=== PATIENT | female | born 2000 | race Caucasian/White ===

== ENCOUNTER 2024-05-08 00:57 | Day surgery (SDC) | payer OTHER, SELFPAY ==
--- NOTE | 2024-04-27 15:59 | SUR.PREOP ---
Report to the Outpatient Waiting Room, entrance under the green pavilion located off [facility], at time ___1130____ on date ____05/08/24___. Planned Procedure Time: ____1329____.? Time changes happen often and if your time is changed the preop area will call you the afternoon before. - You and your visitor will be asked to self-screen and do not enter if you have any COVID symptoms. Please call surgeon if you need to reschedule. - A mask is optional within the hospital at this time. Patients may have clear liquids (water, carbonated beverages, clear teas, apple juice) until 3 hours prior to surgery with a maximum of 20 ounces. - NO CLEAR LIQUIDS AFTER 1030 - No food from midnight until time of surgery and no smoking, or chewing tobacco (or any form of nicotine). No chewing gum, candy or mints. - Infants may have breast milk until 4 hours before surgery, infant formula 6 hours prior to surgery. - Children will be allowed to drink immediately following surgery.? If applicable, please bring a bottle or sippy cup to assist with drinking. Juice, water, soda, and popsicles are readily available.? For infants on formula, please bring formula the day of surgery.? Pacifiers are allowed. Take only the following medications with a SIP of water on the morning of surgery: N/A DO NOT STOP ANY OF YOUR OTHER PRESCRIPTION MEDICATIONS PRIOR TO SURGERY EXCEPT THE FOLLOWING Hold all vitamins and supplements for 3 days per anesthesiologist. Medications to discontinue per physician N/A Date to take last dose Please no make-up, nail ivorian, hairspray, perfume, deodorant, or body powder the day of surgery.? No jewelry (including any body piercings) or valuables the day of surgery, leave them at home.? Please take a shower or bath the night before, or the morning of, surgery with an antibacterial soap.? Wear comfortable, loose fitting clothing.? Children are encouraged to wear pajamas. - Jewelry must be removed prior to entering the operating room.? Rings and piercings that are not removed may be cut off. - The hospital will not accept responsibility for valuables.? - Please leave all valuables, including medications, at home the day of surgery. If you are going home after surgery, a licensed sheet pile driver operator must drive you home.? - NO public transportation without another adult if you receive anesthesia. - We recommend that an adult stay with you for 24 hours following discharge. - We also recommend that you do not drive, make important decision, drink alcoholic beverages, or take any drugs that were not prescribed by your health care provider for at least 24 hours after your discharge time. For Pediatric surgeries, we recommend two adults accompany the child home. Follow any additional instructions given to you from your surgeon. Telephone instructions given to ____SERENITY ELIAS and asked if any additional questions and then verbalized understanding. Patient advised to call surgeon office or pre surgery nurse liaison [phone] if any additional questions.
[2024-04-27 16:09] VITALS: BMI 18.3
[2024-05-08] VITALS (8 sets, daily range): BP systolic 104–119; BP diastolic 50–80; PULSE 56–93; RESP 14–20; TEMP 36.1–36.9; O2SAT 99–100; BMI 19.9
--- OUTSIDE RECORDS SUMMARY | 2024-05-08 01:01 | XMS_ITS | Clinical Summary ---
Author Organization [facility] Address [address] Rose: Epic Prelude ADT CEASAR SORENSEN [address] Care Team Providers Care Host Name Role Phone [facility], External Provider Primary Care Provider Un available Allergies No known active allergies Medications ibuprofen (MOTRIN) 600 mg tablet Take 1 Tablet (600 mg) by mouth every 6 hours as needed 60 Tablet 2 10/12/2022 11:03 AM CDT 10/12/2022 Active acetaminophen (TYLENOL) 325 mg tablet Take 2 Tablets (650 mg) by mouth every 6 hours as needed 60 Tablet 2 10/12/2022 Active sertraline (ZOLOFT) 50 mg tablet Take 50 mg by mouth daily. 11/21/2022 Active Active Problems Problem Noted Date Diagnosed Date Routine follow-up 10/21/2019 Anxiety state 10/21/2019 Normal labor and delivery 06/30/2019 Encounter for supervision of low-risk in third trimester 04/22/2019 Supervision of low-risk first , second trimester 01/14/2019 Encounters Date Type Department Care Team Description 04/21/2024 External Device Data [facility]STRACTION Provider, Abstract 03/25/2024 External Device Data [facility]STRA[facility] Provider, Abstract from Last 3 Months Family History Medical History Relation Name Comments Healthy Father Hypertension Mother Relation Name Status Comments Father Alive Mother Alive Social History Tobacco Use Types Packs/Day Years Used Date Smoking Tobacco: Never Smokeless Tobacco: Never Alcohol Use Standard Drinks/Week Comments Not Currently 0 (1 standard drink = 0.6 oz pur e alcohol) Feeling Safe Answer Date Recorded Are you in a relationship wi th someone who hurts you emotionally and/or physically? 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 Gender Identity Not on file Sexual Orientation Not on file Last Filed Vital Signs Vital Sign Reading Time Taken Comments Blood Pressure 110/54 06/21/2023 6:21 PM CDT Pulse 96 06/21/2023 6:21 PM CDT Temperature 36.9 C (98.4 F) 06/21/2023 6:21 PM CDT Respiratory Rate 18 06/21/2023 6:21 PM CDT Oxygen Saturation 98% 06/21/2023 6:21 PM CDT Inhaled Oxygen Concentration - - Weight 57.2 kg (126 lb) 06/21/2023 6:21 PM CDT Height 162.6 cm (5' 4 ) 06/21/2023 6:21 PM CDT Body Mass Index 21.63 06/21/2023 6:21 PM CDT Plan of Treatment Health Maintenance Due Date Last Done Comments HPV VACCINES (1 - 3-dose series) 2013 DTAP/TDAP/TD VACCINES (1 - Tdap) 2017 HEPATITIS B VACCINES (1 of 3 - 19+ 3-dose series) 2017 CERVICAL CANCER SCREENING 07/20/2019 INFLUENZA VACCINE (#1) 2023 CHLAMYDIA SCREENING (ANNUAL) 11-24 YEARS Discontinued 06/21/2023, 11/14/2018 PNEUMOCOCCAL VACCINE 0-49 YEARS Aged Out No longer eligible b ased on patient's age to complete this topic Procedures Procedure Name Priority Date/Time Associated Diagnosis Comments VAGINOSIS/VAGINITIS PANEL PLUS Routine 06/21/2023 6:42 PM CDT Genital lesion, female from Last 3 Months or Most Recently Relevant to Health Maintenance Results * (ABNORMAL) VAGINOSIS/VAGINITIS PANEL PLUS (06/21/2023 6:42 PM CDT) BACTERIAL VAGINOSIS POSITIVE(A) NEGATIVE [facility] TRINA SPECIES NOT DETECTED NOT DETECTED [facility] TRINA GLABRATA NOT DETECTED NOT DETECTED [facility] Comment: Trina species C. albicans, C. tropicalis, C. parapsilosis, and/or C. dubliniensis can be detected, but not differentiated, in the Trina spp. result. TRICHOMONAS VAGINALIS (TV), TMA NOT DETECTED NOT DETECTED [facility] C TRAC RNA NOT DETECTED NOT DETECTED [facility] N.GONORRHOEAE RNA, TMA NOT DETECTED NOT DETECTED [facility] Comment: For additional information, please refer to [email or web address]/faq/AYN480 (This link is being provided for information/ educational purposes only.) Test Performed at: [facility] [address] [place] [address] Kemar Martin MD Genital SPECIMEN FROM VAGINA / Unknown 06/21/2023 6:42 PM CDT 06/22/2023 9:16 AM CDT Nadiya Perrin PROFESSOR OF ARCHITECTURE-STEEL ANALYST MICROBIOLOGY - GENERAL O RDERABLES Final Result Performing Organization Address City/State/[facility] Phone Number 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
[2024-05-08] MEDS: LACTATED RINGERS 1,000 ML 30 ML IV CONT ×2 (12:08→14:33)
[2024-05-08] MEDS: SCOPOLAMINE 1 MG PATCH 1 PATCH TRANSDERM (12:24)
[2024-05-08 12:25] LABS: BEDSIDEPREGUCG Negative (Negative)
[2024-05-08] MEDS: TRANEXAMIC ACID 1,000MG/ISO100 1,000 MG/100 ML BAG 200 MG IVPB (13:05)
--- NOTE | 2024-05-08 13:09 | WPDHPUPDATE1 ---
History and Physical Update Update Date/Time: 05/08/24 13:09 History and Physical has been reviewed, including an updated exam of the patient. There are NO changes in the patient's condition. Risks, benefits, and alternatives have been discussed and questions answered. Patient agrees to proceed with procedure.
--- NOTE | 2024-05-08 13:15 | W.PM.PROC2 ---
Procedure Note - Detailed Date of Procedure 05/08/24 Pre-op Diagnosis micromastia Post-op Diagnosis Same Procedure Performed Bilateral augmentation mammplasty Surgeon Jeronimo Balbuena MD Anesthesia General Findings Bilateral Marcella Cohesive 445cc Right - REF# [id number] SN [id number] Left - REF# [id number] SN [id number] Description of Procedure She is here today for bilateral breast augmentation. Previously and again today the risks, benefits, alternatives were discussed in extensive detail. I wanted her to be very realistic about the risks involved as well as expectations. We discussed aftercare and what to monitor for. Made sure answered all of her questions to her satisfaction today and consent was obtained. Marked in the preoperative holding area with their verification. The patient was taken to the operating room placed supine on the operating table. Anesthesia was provided by anesthesiology. A surgical time-out was taken. We cleansed the skin and 1% lidocaine and 0.25% Marcaine with epinephrine was used anesthetize as a field block. She was prepped and draped in a standard sterile fashion. Tegaderm nipple Bruno were placed. A 15 blade used to make an incision along the inframammary fold. Dissection was continued at 45 degree angle until the chest wall as identified. I elevated a subfascial pocket in the appropriate dimensions based on our preoperative planning for the implant. I then copiously irrigated with saline solution and verified a strict hemostasis. Next the use a triple antibiotic and Betadine containing solution to irrigate the pocket. I washed my gloves with the triple antibiotic and Betadine solution. We washed the implant immediately upon opening it with this solution and only opened it when we needed it. I used implant funnel and no-touch technique. The implant was introduced into the pocket using the funnel. Having verified positioning of the implant this was closed using 2-0 PDS followed by 3-0 Monocryl in a running subcuticular 4-0 Monocryl followed by tissue glue. Fluffs and surgical bra were placed. Patient was awoke and taken to PACU without difficulty. All instrument sponge counts were correct at the end of the case. Estimated Blood Loss 20 Drains No Packing No Pathology None sent Complications No immediate complications Condition Stable Disposition PACU
--- NOTE | 2024-05-08 13:33 | P.PNAN_ITS ---
Anes - Initial Pre Proc Eval Procedure: Operation Date: 05/08/24 13:30 Proposed Procedures p Bilateral Breast Augmentation - Jeronimo Balbuena MD Date/Time: 05/08/24 13:33 Surgeon: Jeronimo Balbuena MD Pre Op Diagnosis: micromastia Patient Data Age: 23 Gender: F Height: 1.65 m Weight: 54.3 kg Last Vital Signs Temp 36.9 C 05/08/24 12:07 Pulse 88 05/08/24 12:07 Resp 14 05/08/24 12:07 BP 110/73 05/08/24 12:07 Pulse Ox 99 05/08/24 12:07 O2 Del Method Room Air 05/08/24 12:07 Allergies Allergy/AdvReac Type Severity Reaction Status Date / Time No Known Allergies Allergy Verified 05/08/24 12:06 Home Medications ?Medication ?Instructions ?Recorded ?Confirmed ?Type No Home Medications 04/27/24 04/27/24 History Laboratory Tests 05/08/24 12:07 POC Urine HCG, Qual Negative (Negative) Patient hx anesthesia problems: none Family hx anesthesia problems: none Results Review: All pre-operative results and documents have been reviewed as part of the pre- operative evaluation. COUNT INCLUDES THE [facility] Social History Social History Years smoked: 2 Smoking status: Light tobacco smoker Tobacco type: e-cigarettes/vaping Substance use: current Substance use type: marijuana Other substance usage details: ~ ONCE PER WEEK Living arrangements: with family Spiritual care concerns: No Anes - Eval Final PreProcedure Day of Procedure 05/08/24 13:33 Patient weight: normal Heart: regular rate and rhythm Lungs: clear to auscultation and normal air movement Airway: Mallampati scale class 1 Neurological: alert and oriented Last oral intake: >/= 8 hours ASA classification: II Emergent: no Anesthetic plan: proceed Anesthesia type and monitoring: general LMA and standard monitoring Results Review: All pre-operative results and documents have been reviewed as part of the pre- operative evaluation. Smokes marijuana about once a week, last smoked yesterday. Informed Consent: The patient's anesthetic plan and its attendant risks and benefits were discussed with the patient/family/POA. Questions were solicited and answers provided to the satisfaction of the patient/family/POA.
[2024-05-08] MEDS: ceFAZolin 2 GM/D5W 50 ML 2 GM/50 ML BAG IVPB (13:38)
[2024-05-08] MEDS: NACL 0.9% IRRIG POUR BOTTLE 900 ML, GENTAMICIN SULFATE INJ 160 MG, ceFAZolin 2 GM, POVI... IRRIGATION (14:01)
[2024-05-08] MEDS: fentaNYL CITRATE INJ (*CRX) 100 MCG/2 ML VIAL 25 MCG IV PUSH ×4 (15:03→15:20)
[2024-05-08] MEDS: oxyCODONE HCL (*CRX) 5 MG TAB IR PO (15:46)
== END 2024-05-08 16:16 | disposition home or self-care (01) ==
PROVIDERS: Anesthesiology; Visit Provider Surgery Plastic and Reconstructive Surgery
PROC: (CPT 19325; principal; 2024-05-08 13:30)
DX: Z41.1 Encounter for cosmetic surgery (principal); N64.82 Hypoplasia of breast; F17.290 Nicotine dependence, other tobacco product, uncomplicated; F12.90 Cannabis use, unspecified, uncomplicated
CPT/HCPCS: 19325; A9270; J0690; J1100; J1580; J2003; J2004; J2250; J2405; J2704; J3010; J7120